=== PATIENT | female | born 1995 | race Two or more races ===

== ENCOUNTER 2016-09-07 15:54 | Emergency (ER) | payer SELFPAY ==
[~2016-09-07] VITALS: Ht 157.5 cm; Wt 86.2 kg
[2016-09-07 16:34] VITALS: BP 144/93
[2016-09-07 18:12] LABS: Urine Bilirubin Negative (Negative); Urine Blood Negative /uL (Negative); Urine Color Yellow (Yellow); Urine Glucose Normal (Normal); Urine Ketone Negative (Negative); Urine Nitrite Negative (Negative); Urine RBC <1 /hpf (0 - 4); Urine Squamous Epithelial Cell FEW /hpf (<5); Urine Urobilinogen Normal (Negative); Urine pH 5.5 (5.0-8.0)
== END 2016-09-08 01:00 | disposition left against medical advice (07) ==
LOC: ER 16:02
DX: R10.9 Unspecified abdominal pain (principal); Z53.21 Procedure and treatment not carried out due to patient leaving prior to being seen by health care provider
CPT/HCPCS: 74176; 81001; 81025

== ENCOUNTER 2020-03-17 19:17 | Observation (INO) | payer SELFPAY ==
[~2020-03-17] VITALS: Ht 157.5 cm; Wt 108.0 kg
[2020-03-17] MEDS ORDERED: ASCO500T11 PO (20:09)
[2020-03-17] MEDS ORDERED: PREN-96 PO (20:09)
== END 2020-03-17 21:32 | disposition home or self-care (01) ==
LOC: LDRP 19:17
PROVIDERS: ADMIT Obstetrics & Gynecology; ATTEND Obstetrics & Gynecology
DX: O62.9 Abnormality of forces of labor, unspecified (principal); O26.893 Other specified pregnancy related conditions, third trimester; R05 Cough; Z3A.32 32 weeks gestation of pregnancy
CPT/HCPCS: 59025; 81002; 84112; G0378; Q0114